=== PATIENT | male | born 1980 | race Caucasian/White ===

== ENCOUNTER 2020-01-14 02:50 | Emergency (ER) | payer OTHER, SELFPAY ==
[2020-01-14 02:53] VITALS: BP 118/71; PULSE 102; RESP 18; TEMP 36.8; O2SAT 96; BMI 23.6
--- NOTE | 2020-01-14 03:01 | W.ED.DENTAL ---
HPI - Dental/Oral General: Chief complaint: Dental/Oral Stated complaint: abcess tooth Time Seen by Provider: 01/14/20 03:00 Source: patient Mode of arrival: ambulatory Limitations: no limitations History of Present Illness: HPI Narrative: 39-year-old male patient presents to the emergency department with acute onset of dental pain. She reports previous trauma, dental avulsion years ago to the affected tooth. He reports tongue cannot even touch the tooth without sharing pain. MD Complaint: tooth pain Location: Tooth # Teeth map: 1. Onset (ago): hour(s) (2-3) Duration: constant Severity: severe Severity scale (1-10): 7 Relieving factors: NSAIDs Exacerbating factors: chewing, cold and heat Context: history of dental caries and trauma (mechanism) Associated symptoms: Reports ear or mastoid pain and gum swelling; Denies fever(s) or odynophagia Treatment prior to arrival: other (IBU) Review of Systems General: Reports: 10 or more systems reviewed and unremarkable except in HPI and below Const: Denies: fever(s), chills or diaphoresis Eyes: Denies: blurry vision or eye redness ENMT: Reports: dental pain and ear or mastoid pain; Denies: throat pain, odynophagia, mouth pain, swelling of lips/tongue, nasal discharge or nasal congestion Card: Denies: chest pain, palpitations or irregular heart rhythm Resp: Denies: dyspnea, productive cough, non-productive cough or wheezing GI: Denies: abdominal pain, nausea or vomiting : Denies: dysuria Musc: Denies: back pain Skin/Breast: Denies: rash or pruritus Neuro: Denies: headache(s), weakness in extremities or behavioral changes Psych: Denies: anxiety or depression Baldev/Lymph: Denies: easy bruising Physical Exam Const: COMMON NORMALS: no acute distress, patient oriented x3, healthy appearing and alert GENERAL APPEARANCE: cooperative, comfortable and well hydrated HENMT: COMMON NORMALS: normocephalic, atraumatic, EAC's normal, TM's normal bilaterally, Normal external nose present and moist oral mucous membranes HEAD & SCALP: normocephalic and atraumatic FACE & SINUS: normal facial exam NOSE: Normal external nose present EXTERNAL AUDITORY CANAL: EAC's normal TYMPANIC MEMBRANE: TM's normal bilaterally MOUTH: Normal oral and palatal mucosa present TEETH & GINGIVA: Yes abnormal tooth and associated gingiva (left lower gumline) TEETH & GINGIVA IMAGES: 1. Gumline edema, tooth avulsion with erythema, root exposure present, dental decay present THROAT: posterior oropharynx normal Eye: COMMON NORMALS: Equal, round and reactive pupils present and EOMs intact bilaterally GENERAL EYE: appearance normal, both eyes and all related structures PUPIL: Yes Equal, round and reactive pupils present Neck/C-Spine: COMMON NORMALS: full ROM and no lymphadenopathy GENERAL: Yes normal visual inspection and Yes trachea midline CERVICAL SPINE: Yes cervical ROM normal Lymph: LYMPHATIC: no lymphadenopathy noted Chest: COMMONS NORMALS: normal inspection of the chest Resp: COMMON NORMALS: normal respiratory effort and clear to auscultation bilaterally AUSCULTATION: clear to auscultation bilaterally Cardio: COMMON NORMALS: regular rhythm, S1 normal heart sound present, S2 normal heart sound present and Peripheral pulses 2+ throughout RHYTHM: regular rhythm HEART SOUNDS: S1 normal heart sound present and S2 normal heart sound present PERIPHERAL PULSES: Peripheral pulses 2+ throughout GI: COMMON NORMALS: Soft to palpation and non-tender INSPECTION: Yes normal to inspection PALPATION: Yes Soft to palpation : COMMON NORMALS: Yes no CVA tenderness BLADDER/KIDNEY EXAM: Yes no CVA tenderness Back/Pelvis: COMMON NORMALS: no CVA tenderness and thoracic and lumbar spine normal to inspection Extremity: COMMON NORMALS: normal to inspection and capillary refill normal Neuro: COMMON NORMALS: patient oriented x3 and no focal motor deficits SENSORIUM/ORIENTATION: Yes alert Psych: COMMON NORMALS: mental status grossly normal, Normal thought process present and cooperative ACTIVITY/MOTOR BEHAVIOR: Yes appropriate eye contact THOUGHT PROCESS: Normal thought process present Skin: COMMON NORMALS: no rashes or lesions noted and turgor normal GENERAL SKIN EXAM: no rashes or lesions noted and turgor normal Course Vital Signs: Vital signs: Vital Signs Temperature 98.2 F 01/14/20 02:53 Pulse Rate 102 H 01/14/20 02:53 Respiratory Rate 18 01/14/20 02:53 Blood Pressure 118/71 01/14/20 02:53 Pulse Oximetry 96 01/14/20 02:53 Discharge Plan Discharge Patient Disposition: Home Clinical Impression: Dental caries, Dental abscess, Toothache Condition: Stable Prescriptions: New clindamycin HCl 300 mg capsule 300 mg PO QID 7 Days Qty: 28 RF: 0 IBU 800 mg tablet 800 mg PO TID PRN (Reason: pain) Qty: 30 RF: 0 Lidocaine Viscous 2 % solution 1.2 ml topical Q3H PRN (Reason: pain) Qty: 15 RF: 0 Discharge Orders: Discharge Order (Routine); Ordered 01/14/20 Ordered By: Aubrie Cobian Referrals: Antelmo Bearden, [Staff Physician] - Discharge Diet: GI Soft Discharge Activity: Resume usual activity Patient Instructions: Dental Abscess (ED), Dental Caries (ED), Toothache (ED) Activity Restrictions/Additional Instructions: Call your dentist in the morning with for an appointment, see your dentist within 2 to 3 days Take clindamycin until all gone, even if feeling better, take clindamycin on a full stomach to avoid stomach upset Warm salt water swish and spit several times daily Avoid chewing on the affected area May apply dental wax to the tooth to help with root sensitivity Return to the emergency department if you develop difficulty swallowing, swelling under the chin or facial redness Stand Alone Forms: Work/School Release Coding Level of Care Code ED Certified Medical Transcriptionist for Chg Fwd Exam Comprehensive
[2020-01-14] MEDS: HYDROcodone-acetaminophen 5-325 mg Tablet 1 TAB PO (03:10)
[2020-01-14] MEDS: ketorolac 60 mg/2 mL INJ IM (03:10)
[2020-01-14] MEDS: clindamycin 150 mg Capsule 300 MG PO (03:10)
[2020-01-14] MEDS: lidocaine 2% viscous 15 mL UDC 2 ML MUCOUS MEM (03:10)
== END 2020-01-14 03:25 | disposition home or self-care (01) ==
PROVIDERS: Emergency Provider Nurse Practitioner Family
DX: K02.9 Dental caries, unspecified (principal); K04.7 Periapical abscess without sinus
CPT/HCPCS: 12345; 96372; 99282; 99283; J1885

== ENCOUNTER 2023-10-14 16:26 | Emergency (ER) | payer MEDICAID, SELFPAY ==
[2023-10-14 16:34] VITALS: BP 167/102; PULSE 97; RESP 20; TEMP 36.7; O2SAT 97; BMI 25.8
[2023-10-14 17:11] LABS: Basophils # 0.1 10^3/uL (0.0-0.1); Basophils % 0.8 %; Eosinophils # 0.4 10^3/uL (0.0-0.8); Eosinophils % 3.5 %; Hematocrit 50.5 % (37-53); Lymphocytes # 3.6 10^3/uL (0.8-4.8); Lymphocytes % 33.4 %; Mean Corpuscular HGB Conc 33.7 g/dL (30-55); Mean Corpuscular Hemoglobin 31.5 pg (27-33); Mean Corpuscular Volume 93.7 fl (82-101); Mean Platelet Volume 10.5 fL (7.4-10.4); Monocytes # 0.7 10^3/uL (0.2-0.9); Monocytes % 6.2 %; Neutrophils # 6.03 10^3/uL (1.8-7.7); Neutrophils % 55.7 %; Nucleated Red Blood Cells % 0 %; Platelet Count 253 10^3/cmm (157-399); Red Blood Count 5.39 10^6/uL (3.85-5.65); Red Cell Distribution Width 12.3 % (12.1-15.1); White Blood Count 10.82 10^3/uL (3.29-11.43)
[2023-10-14 17:28] LABS: Alanine Aminotransferase 117 U/L (0-41); Albumin Level 4.8 g/dL (3.5-5.2); Alkaline Phosphatase 94 U/L (40-130); Anion Gap 16.8 (5-19); Aspartate Amino Transferase 45 U/L (0-40); Blood Urea Nitrogen 8 mg/dL (6-20); Calcium 9.4 mg/dL (8.5-10.5); Carbon Dioxide 25 mmol/L (22-29); Chloride 102 mmol/L (98-107); Creatinine Clr Calc Pharmacy 130.0862; Globulin 2.5 g/dL (1.3-4.6); Glucose 107 mg/dL (65-115); Lipase 186 U/L (13-60); Osmolality Calculated 289 mOsm/kg (285-295); Potassium 3.8 mmol/L (3.5-5.1); Sodium 140 mmol/L (136-145); Total Bilirubin 0.4 mg/dL (0.15-1.2); Total Protein 7.3 g/dL (6.6-8.7)
== END 2023-10-14 18:33 | disposition left against medical advice (07) ==
PROVIDERS: Emergency Medicine; Emergency Provider Family Medicine; PCP Family Medicine
DX: Z53.21 Procedure and treatment not carried out due to patient leaving prior to being seen by health care provider (principal)
CPT/HCPCS: 36415; 80053; 83690; 85025